=== PATIENT | female | born 1970 | race Native Hawaiian/Other Pacific Islander ===

== ENCOUNTER 2017-04-03 18:20 | Emergency (ER) | payer OTHER ==
[~2017-04-03] VITALS: Ht 170.2 cm; Wt 53.5 kg
[2017-04-03 19:55] LABS: PLATELET COUNT 215 K/uL (152-353)
[2017-04-03 20:01] LABS: POTASSIUM 3.4 mmol/L (3.6-5.2)
[2017-04-03 20:39] VITALS: BP 101/74; TEMP 98.5
== END 2017-04-03 20:42 | disposition home or self-care (01) ==
LOC: ED 18:20
DX: J18.9 Pneumonia, unspecified organism (principal)
CPT/HCPCS: 36415; 80053; 85027; 87081; 87804; 87880; 99283